=== PATIENT | female | born 1995 | race Two or more races ===

== ENCOUNTER 2023-12-27 09:59 | Outpatient (CLI) | payer OTHER ==
[~2023-12-27 09:59] MED LIST: CEFADROXIL500 MG PO
== END 2023-12-27 10:02 | disposition home or self-care (01) ==
LOC: SONOGRAMA 09:59
PROVIDERS: ATTEND Pathology Anatomic Pathology
DX: D34 Benign neoplasm of thyroid gland (principal); E06.3 Autoimmune thyroiditis; E04.2 Nontoxic multinodular goiter

== ENCOUNTER 2024-11-01 11:12 | Emergency (ER) | payer OTHER ==
[~2024-11-01] VITALS: Ht 165.1 cm; Wt 122.5 kg
[2024-11-01 11:17] VITALS: BP 134/80; O2SAT 100
[2024-11-01] MEDS ORDERED: SYNTHROID125 MCG PO (11:18)
[2024-11-01 12:47] LABS: BASO % 0.7 % (0.1-1.2); EOS # 0.09 (0.04-0.54); EOS % 1.2 % (0.7-7.0); LYMPH # 2.22 (1.18-3.74); LYMPH % 29.8 % (19.3-53.1); MEAN PLATELET VOLUME 11.50 fl (9.4-12.4); MONO # 0.73 (0.24-0.82); MONO % 9.8 % (4.7-12.5); NEUT # 4.34 (1.56-6.13); NEUT % 58.2 % (34.0-71.1); RED CELL DISTRIBUTION WIDTH 18.5 % (11.6-14.4)
== END 2024-11-01 16:24 | disposition home or self-care (01) ==
LOC: ER 11:12
PROVIDERS: General Practice
DX: M25.579 Pain in unspecified ankle and joints of unspecified foot (principal); M25.472 Effusion, left ankle; D64.89 Other specified anemias